=== PATIENT | male | born 1950 | race Caucasian/White ===

== ENCOUNTER 2025-03-31 10:48 | Inpatient (IN) ==
[2025-03-31] MEDS ORDERED: NORCO 7.5/325 MG TAB PO PRN (13:00)
[2025-03-31] MEDS: NORCO 5/325 MG TAB PO PRN (14:24)
[2025-03-31 14:35] VITALS: BMI 35.4
--- NOTE | 2025-03-31 19:33 | PT/OTEVAL ---
PT/OT OBJECTIVES - HISTORY Prescription: PT Consult Diagnosis: Fall with L Hip Fracture s/p ORIF Precautions: PWB LLE, Fall Risk PMH: HTN, Dyslipidemia, AFib, Thyroid Issues, GERD, Prostate Issues, Falls, Chronic Back Pain Prior Level of Function: Independent Other: Per patient and present in room- they reside in a single story home with 3 steps to enter with RHR but no HR on final step into house ( states pt would grab onto the sink inside the door and pull up prior). PLOF: Independent with mobility tasks without a device with exception of long distances where he uses a rollator as needed due to history of back pain. 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 DME: Rollator. History of Present Illness: Mr. Gonzalez is a 75 year old male who was admitted to [facility] on 03/24/2025 after a fall and subsequent L hip pain. Imaging demonstrated L hip comminuted and displaced intertrochanteric fracture and pt underwent surgery on 03/25/2025 for IM nailing. Pt was initially made WBAT; however, on follow up imaging ortho then recommended PWB to LLE. Pt was stabilized medically; however, unable to safely return back home and was transferred to [facility] on the afternoon of 03/31/2025 for swing bed rehab program. - COGNITION Mental Status: Alert, Oriented, Name, Date, Place, Purpose Communication Status: Verbal, Hard of Hearing Ability to Follow Directions: 2 Step Memory Loss: None - PAIN Left Hip Pain Scale: Severe Comments: Pt reports pain is 10/10 - Nursing aware. - BED MOBILITY Rolling: Maximum Scooting: Maximum, x2 - TRANSFERS Supine to Sit: Moderate, x2 Sit to Stand: Moderate, x2 Sit or Stand Pivot: Moderate, x2 Safety (requires cues for:): Weight Bearing Precaution, Hand Placement Precaution - BALANCE Static Sitting: Good Standing: Poor Balance Comment: Poor+ Dynamic Sitting: Fair Standing: Total Assist - NEUROMOTOR/SENSATION Raphael. Lower Ext Sensation: WFL Coordination: WFL Proprioception: WFL - ROM Bilateral LE ROM: WFL Muscle Tone: WFL - STRENGTH Right LE Strength Number: 3 Other comment: 3+/5 Left Hip Strength Number: 2 Left Knee Strength Number: 2 Other comment: 2+/5 Left Ankle Strength Number: 3 - GAIT Pt. ambulates how many feet?: 2 Amount of Assistance Required: Moderate Type of Assistive Device: Rolling Walker Comments: x2- cues for PWB LLE - TREATMENT Date: 03/31/25 Time: 15:00 Treatment Type: Evaluation - TOTAL TREATMENT TIME Total Time: 60 - POST ASSESSMENT Post Assessment Comment: Pt was found supine in bed in room and agreeable to participation in PT services. Pt and provided history and PLOF. Pt reports 10/10 pain to L hip and nursing staff aware but pt reports that he thinks it has to do with ambulance ride. Review of WB precautions with pt verbalizing understanding. Pt max assist for rolling in bed and mod assist x 2 to transition from supine to sitting EOB. Once at EOB, pt able to maintain balance. Pt then completed sit to stand transfers with mod assist x 2 and cues for proper hand placement and facilitation of COM over KAYLA. Pt attempted to ambulate taking 2 steps before fatigue. Pt returned to bed. Review of PT POC and goals with pt- pt states his goal is to get stronger and get home. Pt would benefit from continued PT to address deficits and facilitate highest level of function and safe discharge planning. - EXIT DISPOSITION Exit Position: BED Call light in reach: Yes Bed Alarm On: YES Comments: All needs met. PT/OT ASSESSMENT - PT Problem List: Decreased Bed Mobility, Decreased Transfers, Decreased Gait, Decreased Balance, Decreased Safety, Decreased LE Strength, Other - PT GOALS Short Term Goals Days: 10 Mobility: Pt will perform bed mobility tasks with min assist Transfers: Pt will perform functional transfers with mod assist Gait: Pt will ambulate 50ft with FWW with PWB on LLE and min assist Balance: Pt will increase static standing balance to fair Jail Goals Days: 20 Mobility: Pt will perform bed mobility tasks with mod I Transfers: Pt will perform functional transfers with mod I Gait: Pt will ambulate 100ft with FWW with supervision Balance: Pt will increase static standing balance to good ROM/Strength: Pt will increase RLE strength to 5/5 and LLE strength to 4/5 Others: Pt will ascend/descend 3 stairs with RHR and touch assist - PATIENT GOALS Patient/Family Goals: "Get my strength back so I can go home" Goals Discussed with Patient/Family: Yes Rehabilitation Potential: Good to meet stated goals Justification for Potential: Facilitate highest level of function and safe discharge planning Weakness and Barriers: Pain If yes, explain: LLE - PLAN Suggested Treatment Plan: Bed Mobility Training, Therapeutic Activity, Gait Training, Neuro Re-education, Therapeutic Ex with HEP, Patient Education, Family Education, Other Other comment: Manual Therapy - FREQUENCY AND DURATION PT: 5x per week x 20 days Expected Continuation of Care at Discharge: Determined on Progress Anticipated Equipment Needs: TBD pending progress
[2025-03-31] MEDS ORDERED: COLACE CAP 100 MG PO SCH (21:00)
[2025-03-31] MEDS: CRESTOR TAB 10 MG PO SCH (21:30)
[2025-03-31] MEDS: PROTONIX TAB 40 MG PO SCH (21:30)
[2025-03-31] MEDS: ELIQUIS PO SCH (21:30)
[2025-03-31] MEDS: FLOMAX PO SCH (21:30)
[2025-03-31] MEDS: NORVASC TAB 5 MG PO SCH (21:31)
[2025-03-31] MEDS: COLACE CAP 100 MG PO SCH (21:31)
[2025-04-01] MEDS: MILK OF MAGNESIA PO PRN (00:03)
--- NOTE | 2025-04-01 08:39 | DR.H&P ---
H&P History & Physical for Day of: H&P Date: 03/31/25 Chief Complaint Chief Complaint: Left hip pain. History of Present Illness History of Present Illness: Patient is a 75-year-old male with a past medical history of paroxysmal atrial fibrillation, COPD, hypertension, hyperlipidemia, carotid disease, admitted for swing bed. He is status post left femur ORIF. He is currently resting comfortably in bed. He has no concerns. Will obtain labs. Restart home medications. Order PT/OT. Follow-up recommendations. Otherwise continue with current treatment plan. Continue closely monitor and follow-up labs/imaging. Past Medical History Past Medical History: Hypertension Past Surgical History Surgical History: Appendectomy Family History Family Medical History: Diabetes Mellitus, Cancer and Hypertension Medications Home Medications: Home Medications Medication Instructions Recorded Confirmed Type amlodipine 5 mg tablet 5 mg PO HS 03/27/18 03/31/25 History tamsulosin 0.4 mg capsule 0.4 mg PO HS 03/27/18 History Lactobacillus 40-Bifidobact 1 cap PO DAILY 05/04/24 History 3-S.thermophilus 100 billion cell capsule (Probiotic) apixaban 5 mg tablet (Eliquis) 5 mg PO BID 05/04/24 History cholecalciferol (vitamin D3) 50 50 mcg PO DAILY 03/31/25 History mcg (2,000 unit) capsule (Vitamin D3) cyanocobalamin (vitamin B-12) 1,000 mcg subcut QMONTH 05/04/24 03/31/25 History 1,000 mcg/mL injection solution finasteride 5 mg tablet 5 mg PO QDAY 05/04/24 History levothyroxine 25 mcg tablet 25 mcg PO QDAY 05/04/24 History lisinopril 30 mg tablet 30 mg PO QDAY 05/04/2403/31 History multivitamin with iron-mineral 1 tab PO DAILY 05/04/24 03/31/25 History omega-3 fatty acids-vitamin E 1 cap PO DAILY 05/04/24 03/31/25 History 1,000 mg capsule pantoprazole 40 mg tablet,delayed 40 mg PO HS 05/04/24 03/31/25 History release rosuvastatin 10 mg tablet 10 mg PO QPM 05/04/24 History triamterene 37.5 1 cap PO QDAY 05/04/2403/31 History mg-hydrochlorothiazide 25 mg capsule venlafaxine 150 mg 150 mg PO QDAY 05/04/2403/20 History capsule,extended release 24 hr C 250 mg-E 90 mg-zinc 40 mg-copper 2 cap PO DAILY 03/2003/31/25 History 1 mg-lutein 5 [id number] capsule (PreserVision AREDS 2 CO Q-10) acetaminophen 650 mg tablet 650 mg PO Q6H PRN mild mendy n or 03/31/25 03/31/25 History fever amiodarone 100 mg tablet 100 mg PO QDAY 03/31/2503/20 History clopidogrel 75 mg tablet 75 mg PO QDAY 03/31/2503/31 History docusate sodium 100 mg tablet 100 mg PO BID 03/31/25 1 05/31/24 History glucosamine sulfate 250 1 cap PO DAILY 03/31/2503/20 History mg-chondroitin sulfate A 200 mg capsule hydrocodone 5 mg-acetaminophen 325 1 tab PO Q4-6H PRN moderate pain 03/31/25 03/31/25 History mg tablet hydrocodone 7.5 mg-acetaminophen 1 tab PO Q8H PRN mode rate to severe 03/31/25 03/31/25 History 325 mg tablet melatonin 10 mg tablet 10 mg PO HS PRN 03/31/2505/13 History Allergies Allergies Allergy/AdvReac Type Severity Reaction Status Date / Time Sulfa (Sulfonamide Allergy Unknown Hives; Verified 03/31/25 14:08 Antibiotics) Itching; Rash Review of Systems Constitutional: No Symptoms Reported Eyes: No Symptoms Reported ENT: No Symptoms Reported Respiratory: No Symptoms Reported Cardiovascular: No Symptoms Reported Gastrointestinal: No Symptoms Reported Genitourinary: No Symptoms Reported Musculoskeletal: Leg Pain (left hip/leg) Skin: No Symptoms Reported Neurological: No Symptoms Reported Oriented: Normal Eyes: Normal Ear: Normal Nose: Normal Throat: Normal Respiratory: Clear Throughout Cardiovascular: Normal : Normal Auscultation: Bowel Sounds: Normal Palpation: Normal Tenderness: Normal Skin: Normal Musculoskeletal: Hip (monroe, surgical wound) Psychiatric: Normal Mood Description: Calm and Appropriate Affect: Normal Speech Pattern: Clear and Appropriate Assessment/Plan (1) Status post hip surgery: Status: Acute Plan: PT/OT (2) Physical deconditioning: Status: Acute Review H&P Reviewed: Yes Patient was examined?: Yes
[2025-04-01] MEDS: TAB-A-VITE PO SCH (08:53)
[2025-04-01] MEDS: CORDARONE TAB 200 MG PO SCH (08:53)
[2025-04-01] MEDS: PROSCAR PO SCH (08:53)
[2025-04-01] MEDS: MAXZIDE 37.5/25 MG PO SCH (08:53)
[2025-04-01] MEDS: SYNTHROID 25 mcg TAB PO SCH (08:53)
[2025-04-01] MEDS: VISBIOME PROBIOTIC CAP 112.5 B or equivalent PO SCH (08:59)
[2025-04-01] MEDS: ZESTRIL TAB 10 MG PO SCH (08:59)
[2025-04-01] MEDS: PLAVIX PO SCH (08:59)
[2025-04-01] MEDS: EFFEXOR XR 150 MG CAP 24-HR PO SCH (08:59)
[2025-04-01] MEDS: VITAMIN D3 25 mcg (1,000 UNITS) PO SCH (09:30)
[2025-04-01] MEDS: LOVAZA PO SCH (09:30)
--- NOTE | 2025-04-01 15:17 | PT/OTEVAL ---
PT/OT OBJECTIVES - HISTORY Prescription: OT Consult Diagnosis: Fall with L Hip Fracture s/p ORIF Precautions: PWB LLE, Fall Risk PMH: HTN, Dyslipidemia, AFib, Thyroid Issues, GERD, Prostate Issues, Falls, Chronic Back Pain Prior Level of Function: Independent Other: Per patient and present in room- Lives in a 1 story home with 3 steps to enter with HR on the R going up but no HR on final step into house ( states pt would grab onto the sink inside the door and pull up prior). 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 DME includes a Rollator. History of Present Illness: Mr. Gonzalez is a 75 year old male who was admitted to [facility] after a fall and subsequent L hip pain. Imaging demonstrated L hip comminuted and displaced intertrochanteric fracture and pt underwent surgery on 03/25/2025 for IM nailing. Pt was initially made WBAT; however, on follow up imaging ortho then recommended PWB to LLE. Pt was stabilized medically; however, unable to safely return back home and was transferred to [facility] for swing bed rehab program. - COGNITION Mental Status: Alert, Oriented, Name Communication Status: Verbal Ability to Follow Directions: 2 Step Memory Loss: None - PAIN Left Hip Pain Scale: Severe Comments: Pt reports pain is 10/10 - Nursing aware. - BED MOBILITY Rolling: Maximum Scooting: Maximum, x2 - TRANSFERS Sit to Stand: Minimal Sit to Stand Comment: From elevated surface and max VC for hand placement Safety (requires cues for:): Weight Bearing Precaution, Hand Placement Precaution - ADL'S Lower Body ADL: Maximum Toileting: Maximum Bathing: Maximum - BALANCE Static Sitting: Good Standing: Poor Balance Comment: Poor+ Dynamic Sitting: Fair Standing: Poor - NEUROMOTOR/SENSATION Raphael. Lower Ext Sensation: WFL Coordination: WFL Proprioception: WFL Raphael. Upper Ext Sensation: WFL Coordination: WFL - ROM Bilateral UE ROM: WFL - STRENGTH Right LE Strength Number: 3 Other comment: 3+/5 Left Hip Strength Number: 2 Left Knee Strength Number: 2 Other comment: 2+/5 Left Ankle Strength Number: 3 Bilateral UE Strength Number: 4 Other comment: 4-/5 - TREATMENT Date: 04/01/25 Time: 13:00 Treatment Type: Evaluation - TOTAL TREATMENT TIME Total Time: 45 - POST ASSESSMENT Post Assessment Comment: Pt was seen for skilled OT to assess CLOF. Pt was agreeable to participate and able to provide PLOF and hx. Pt was sitting up in recliner and wanting to get up in back in bed. Pt STS with min A for elevated seat. Pt given max VC for transferring to bed. Pt given time to complete task. Pt verbalized pain in his L hip area. Pt repositioned in the bed with max A x2 and max VC. Pt educated on A with positioning. Requested a shower tomorrow. Pt had all needs met and call light within reach. Pt demonstrates deficits with ADLs and ADL functional mobility. Pt would benefit from skilled OT services to address ADL deficits to facilitate highest level of ADL function needed for safe d/c planning. - EXIT DISPOSITION Exit Position: BED Call light in reach: Yes PT/OT ASSESSMENT - OT Problem List: Decreased Mobility ADL's, Decreased Dressing, Decreased Bathing, Decreased UE Strength - PT GOALS Short Term Goals Days: 10 Mobility: Pt will perform bed mobility tasks with min assist Transfers: Pt will perform functional transfers with mod assist Gait: Pt will ambulate 50ft with FWW with PWB on LLE and min assist Balance: Pt will increase static standing balance to fair Grain Handler Goals Days: 20 Mobility: Pt will perform bed mobility tasks with mod I Transfers: Pt will perform functional transfers with mod I Gait: Pt will ambulate 100ft with FWW with supervision Balance: Pt will increase static standing balance to good ROM/Strength: Pt will increase RLE strength to 5/5 and LLE strength to 4/5 Others: Pt will ascend/descend 3 stairs with RHR and touch assist - OT GOALS Intermediate Goals Days: 20 Mobility for ADL's: Pt will improve functional ADL transfers with set up A and LRAD Dressing: Pt to improve LB dressing to set up A with AE PRN Bathing: Pt to improve overall bathing with set up A and AE PRN Upper Ext. Strength/Use: Pt to improve MMT in BUE by 1 grade Short Term Goals Days: 10 Mobility for ADL's: Pt will improve functional ADL transfers with supv A and LRAD Dressing: Pt to improve LB dressing to supv A with AE PRN Bathing: Pt to improve overall bathing with supv A and AE PRN Upper Ext. Strength/Use: Pt to improve MMT in BUE by 1/2 grade - PATIENT GOALS Patient/Family Goals: "To feel better and go home" Goals Discussed with Patient/Family: Yes Rehabilitation Potential: Good to meet stated goals Justification for Potential: To facilitate highest level of ADL function needed for safe d/c planning. Weakness and Barriers: Pain - PLAN Suggested Treatment Plan: Therapeutic Activity, Self Care Training, Neuro Re- education, Therapeutic Ex with HEP, Patient Education, Family Education - FREQUENCY AND DURATION OT: 5x week x 20 days Expected Continuation of Care at Discharge: Determined on Progress
[2025-04-02 06:03] LABS: MEAN PLATELET VOLUME 7.4 fL (7.4-11.0); RED CELL DISTRIBUTION WIDTH 15.0 % (11.6-16.5)
[2025-04-02 06:21] LABS: COR CA(FOR HYPOALB) 9.9 mg/dL (8.5-10.1); COR NA(FOR HYPERGLY) 137 mmol/L (136-145); CREATININE 1.33 mg/dL (0.70-1.30); eGFR NON BLACK RACES 56 (>60)
--- NOTE | 2025-04-03 09:19 | PCM.PROG ---
Progress Note Progress Note for Day of Date of Exam: 04/02/25 Subjective Subjective: Patient is a 75-year-old male with a past medical history of paroxysmal atrial fibrillation, COPD, hypertension, hyperlipidemia, carotid disease, admitted for swing bed post left femur ORIF. This morning he is resting comfortably in bed. No acute events overnight. He has no concerns. He is working with physical therapy. Labs: WBC 9.5, hemoglobin 10, platelets 402, sodium 137, potassium 5.0, creatinine 1.33, glucose 116. Home medications have been resumed. Continue with PT/OT. Follow-up recommendations. Otherwise continue with current treatment plan. Continue closely monitor and follow-up labs/imaging. Past Medical Family Social History Allergies: Allergies Sulfa (Sulfonamide Antibiotics) Allergy (Unknown, Verified 03/31/25 14:08) Hives; Itching; Rash Review of Systems ROS changes noted: see HPI Vital Signs and I&O's Vital Signs: Vital Signs Temperature 97.6 F Pulse Rate [Left Brachial] 52 Respiratory Rate 20 Respiratory Rate 18 Respiratory Rate 20 Respiratory Rate 18 Respiratory Rate 20 Blood Pressure [Left Arm] 133/64 O2 Sat by Pulse Oximetry 95 Intake and Output: Intake & Output 03/31/25 04/01/25 04/02/25 04/03/25 23:59 23:59 23:59 23:59 Intake Total 850 / 850 1530 / 1530 240 / 240 Balance 850 / 850 1530 / 1530 240 / 240 Physical Exam Oriented: Normal Eyes: Normal Ear: Normal Nose: Normal Throat: Normal Respiratory: Normal Cardiovascular: Normal : Normal Auscultation: Bowel Sounds: Normal Tenderness: Normal Skin: Normal Musculoskeletal: Hip (monroe, surgical wound) Psychiatric: Normal Mood Description: Calm and Appropriate Affect: Normal Speech Pattern: Clear and Appropriate Laboratory and Diagnostics 04/02/25 05:40 04/02/25 05:40 Labs: Laboratory WBC 9.5 X10^3/uL (3.6-10.0) 04/02/25 05:40 RBC 3.02 X10^6/uL (4.7-6.0) L 04/02/25 05:40 Hgb 10.0 g/dL (13.5-18.0) L 04/02/25 05:40 Hct 29.3 % (42.0-54.0) L 04/02/25 05:40 MCV 97.0 fL (80.0-100.0) 04/02/25 05:40 MCH 33.2 pg (27.0-34.0) 04/02/25 05:40 MCHC 34.3 g/dL (33.0-35.0) 04/02/25 05:40 RDW 15.0 % (11.6-16.5) 04/02/25 05:40 Plt Count 402 X10^3/uL (150.0-450.0) 04/02/25 05:40 MPV 7.4 fL (7.4-11.0) 04/02/25 05:40 Neut % (Auto) 76.2 % (42.0-75.0) H 04/02/25 05:40 Lymph % (Auto) 8.8 % (21.0-51.0) L 04/02/25 05:40 [place] % (Auto) 12.1 % (0.0-13.0) 04/02/25 05:40 Eos % (Auto) 2.4 % (0.9-2.9) 04/02/25 05:40 Baso % (Auto) 0.5 % (0.2-1.0) 04/02/25 05:40 Neut # (Auto) 7.2 x10^3/uL (2.2-4.8) H 04/02/25 05:40 Lymph # (Auto) 0.8 X10^3/uL (1.3-2.9) L 04/02/25 05:40 [place] # (Auto) 1.1 x10^3/uL (0.3-0.8) H 04/02/25 05:40 Eos # (Auto) 0.2 x10^3/uL (0.0-0.2) 04/02/25 05:40 Baso # (Auto) 0.1 X10^3/uL (0.0-0.1) 04/02/25 05:40 Absolute Nucleated RBC 0.0 /100WBC 04/02/25 05:40 Sodium 137 mmol/L (136-145) 04/02/25 05:40 Corrected Sodium 137 mmol/L (136-145) 04/02/25 05:40 Potassium 5.0 mmol/L (3.5-5.1) 04/02/25 05:40 Chloride 98 mmol/L (98-107) 04/02/25 05:40 Carbon Dioxide 28.5 mmol/L (21-32) 04/02/25 05:40 BUN 30 mg/dL (7-18) H 04/02/25 05:40 Creatinine 1.33 mg/dL (0.70-1.30) H 04/02/25 05:40 Est GFR (MDRD) Af Amer > 60 (>60) 04/02/25 05:40 Est GFR (MDRD) Non-Af 56 (>60) L 04/02/25 05:40 Glucose 116 mg/dL (65-99) H 04/02/25 05:40 Calcium 9.3 mg/dL (8.5-10.1) 04/02/25 05:40 Corrected Calcium 9.9 mg/dL (8.5-10.1) 04/02/25 05:40 Total Bilirubin 0.80 mg/dL (0.2-1.0) 04/02/25 05:40 AST 27 Units/L (15-37) 04/02/25 05:40 ALT 14 Units/L (12-78) 04/02/25 05:40 Alkaline Phosphatase 82 Units/L (46-116) 04/02/25 05:40 Total Protein 7.8 g/dL (6.4-8.2) 04/02/25 05:40 Albumin 3.3 g/dL (3.4-5.0) L 04/02/25 05:40 Globulin 4.5 g/dL (2.5-4.5) 04/02/25 05:40 Albumin/Globulin Ratio 0.7 Ratio (1.1-2.1) L 04/02/25 05:40 Plan (1) Status post hip surgery: Status: Acute Plan: PT/OT (2) Physical deconditioning: Status: Acute
[2025-04-03] MEDS: MELATONIN PO PRN (21:21)
[2025-04-04] MEDS: MORPHINE SULFATE INJ 2 MG INJ IM ONE (02:13)
[2025-04-04] MEDS: LINZESS PO SCH (08:56)
[2025-04-04] MEDS: BUTT CREAM (COMPOUND) TOP PRN (13:38)
[2025-04-05 05:01] LABS: MEAN PLATELET VOLUME 7.6 fL (7.4-11.0); RED CELL DISTRIBUTION WIDTH 14.9 % (11.6-16.5)
[2025-04-05 05:12] LABS: COR CA(FOR HYPOALB) 9.3 mg/dL (8.5-10.1); COR NA(FOR HYPERGLY) 135.0 mmol/L (136-145); CREATININE 2.18 mg/dL (0.70-1.30); eGFR NON BLACK RACES 31.0 (>60)
--- NOTE | 2025-04-05 09:57 | EKG ---
Test Reason : Bradycardia Blood Pressure : */* mmHG Vent. Rate : 55 BPM Atrial Rate : 87 BPM P-R Int : * ms QRS Dur : 84 ms QT Int : 458 ms P-R-T Axes : * 8 22 degrees QTc Int : 438 ms sinus bradycardia/pacs/junctional rhythm Low voltage QRS Septal infarct (cited on or before 04-MAY-2024) Abnormal ECG When compared with ECG of 30-SEP-2024 10:02, Questionable change in initial forces of Anteroseptal leads Nonspecific T wave abnormality, worse in Lateral leads Confirmed by Gage Carroll MD ([id number]) on 04/05/2025 10:45:41 AM Referred By: Confirmed By: Gage Carroll MD
--- NOTE | 2025-04-05 09:58 | PCM.PROG ---
Progress Note Progress Note for Day of Date of Exam: 04/05/25 Subjective Subjective: Patient seen at bedside, no acute events overnight. He is currently admitted for swing bed for physical and Occupational Therapy. He reports doing well. Labs done this morning showed elevated creatinine and potassium. Patient states his appetite has been okay, he has been eating some meals. He denies any nausea, vomiting or diarrhea. He was having some constipation which has resolved. His heart rate has been noted to be in the 40s. Denies having any shortness of breath or chest pain. Denies any weakness. He has a history of atrial fibrillation. He is currently on amiodarone and Eliquis. He states in the past he has been told that his heart rate has been in the 40s. He does not take a beta-rubia. Labs/imaging reviewed: -WBC 10.4 hemoglobin 10 potassium 5.8 BUN 52 creatinine 2.18 Plan: Order EKG. Add tele. Add Lokelma. Encouraged p.o. intake including fluids. Repeat BMP in the evening. Hold lisinopril. Monitor heart rate. Continue home medications. PT/OT as tolerated. Monitor a.m. labs and imaging. Past Medical Family Social History Allergies: Allergies Sulfa (Sulfonamide Antibiotics) Allergy (Unknown, Verified 03/31/25 14:08) Hives; Itching; Rash Vital Signs and I&O's Vital Signs: Vital Signs Temperature 97.6 F Pulse Rate [Left Brachial] 41 Respiratory Rate 20 Respiratory Rate 20 Respiratory Rate 20 Blood Pressure [Left Arm] 122/58 O2 Sat by Pulse Oximetry 96 Intake and Output: Intake & Output 04/02/25 04/03/25 04/04/25 04/05/25 23:59 23:59 23:59 23:59 Intake Total 1530 / 1530 900 / 900 1550 / 1550 100 / 100 Balance 1530 / 1530 900 / 900 1550 / 1550 100 / 100 Physical Exam Oriented: Normal Eyes: Normal Ear: Normal Nose: Normal Throat: Normal Respiratory: Normal Cardiovascular: Bradycardia Auscultation: Bowel Sounds: Normal Palpation: Normal Tenderness: Normal Skin: Normal Musculoskeletal: Hip (monroe, surgical wound) Psychiatric: Normal Mood Description: Calm and Appropriate Affect: Normal Speech Pattern: Clear and Appropriate Laboratory and Diagnostics 04/05/25 04:28 04/05/25 04:28 Labs: Laboratory WBC 10.4 X10^3/uL (3.6-10.0) H 04/05/25 04:28 RBC 3.06 X10^6/uL (4.7-6.0) L 04/05/25 04:28 Hgb 10.0 g/dL (13.5-18.0) L 04/05/25 04:28 Hct 29.5 % (42.0-54.0) L 04/05/25 04:28 MCV 96.5 fL (80.0-100.0) 04/05/25 04:28 MCH 32.8 pg (27.0-34.0) 04/05/25 04:28 MCHC 33.9 g/dL (33.0-35.0) 04/05/25 04:28 RDW 14.9 % (11.6-16.5) 04/05/25 04:28 Plt Count 490 X10^3/uL (150.0-450.0) H 04/05/25 04:28 MPV 7.6 fL (7.4-11.0) 04/05/25 04:28 Neut % (Auto) 75.7 % (42.0-75.0) H 04/05/25 04:28 Lymph % (Auto) 9.8 % (21.0-51.0) L 04/05/25 04:28 [place] % (Auto) 11.1 % (0.0-13.0) 04/05/25 04:28 Eos % (Auto) 2.7 % (0.9-2.9) 04/05/25 04:28 Baso % (Auto) 0.7 % (0.2-1.0) 04/05/25 04:28 Neut # (Auto) 7.9 x10^3/uL (2.2-4.8) H 04/05/25 04:28 Lymph # (Auto) 1.0 X10^3/uL (1.3-2.9) L 04/05/25 04:28 [place] # (Auto) 1.2 x10^3/uL (0.3-0.8) H 04/05/25 04:28 Eos # (Auto) 0.3 x10^3/uL (0.0-0.2) H 04/05/25 04:28 Baso # (Auto) 0.1 X10^3/uL (0.0-0.1) 04/05/25 04:28 Absolute Nucleated RBC 0.0 /100WBC 04/05/25 04:28 Sodium 134 mmol/L (136-145) L 04/05/25 04:28 Corrected Sodium 135 mmol/L (136-145) L 04/05/25 04:28 Potassium 5.8 mmol/L (3.5-5.1) H 04/05/25 04:28 Chloride 98 mmol/L (98-107) 04/05/25 04:28 Carbon Dioxide 23.6 mmol/L (21-32) 04/05/25 04:28 BUN 52 mg/dL (7-18) H 04/05/25 04:28 Creatinine 2.18 mg/dL (0.70-1.30) H 04/05/25 04:28 Est GFR (MDRD) Af Amer 38 (>60) L 04/05/25 04:28 Est GFR (MDRD) Non-Af 31 (>60) L 04/05/25 04:28 Glucose 129 mg/dL (65-99) H 04/05/25 04:28 Calcium 8.7 mg/dL (8.5-10.1) 04/05/25 04:28 Corrected Calcium 9.3 mg/dL (8.5-10.1) 04/05/25 04:28 Total Bilirubin 0.50 mg/dL (0.2-1.0) 04/05/25 04:28 AST 22 Units/L (15-37) 04/05/25 04:28 ALT 14 Units/L (12-78) 04/05/25 04:28 Alkaline Phosphatase 93 Units/L (46-116) 04/05/25 04:28 Total Protein 7.4 g/dL (6.4-8.2) 04/05/25 04:28 Albumin 3.2 g/dL (3.4-5.0) L 04/05/25 04:28 Globulin 4.2 g/dL (2.5-4.5) 04/05/25 04:28 Albumin/Globulin Ratio 0.8 Ratio (1.1-2.1) L 04/05/25 04:28 Plan (1) Status post hip surgery: Status: Acute Plan: PT/OT (2) Bradycardia: Status: Acute (3) Physical deconditioning: Status: Acute (4) Hypertension: Status: Chronic Qualifiers: Hypertension type: primary hypertension Qualified Code(s): I10 - Essential (primary) hypertension (5) Gastroesophageal reflux disease: Status: Chronic Qualifiers: Esophagitis presence: esophagitis presence not specified Qualified Code(s): K21.9 - Gastro-esophageal reflux disease without esophagitis (6) Atrial fibrillation: Status: Chronic Qualifiers: Atrial fibrillation type: unspecified Qualified Code(s): I48.91 - Unspecified atrial fibrillation
[2025-04-05] MEDS: LOKELMA POWDER PO SCH (10:01)
[2025-04-05 16:14] LABS: COR NA(FOR HYPERGLY) 134.0 mmol/L (136-145); CREATININE 2.56 mg/dL (0.70-1.30); eGFR NON BLACK RACES 26.0 (>60)
[2025-04-05] MEDS ORDERED: KAYEXALATE SUSP PO SCH (17:00)
[2025-04-05] MEDS: NS 1,000 ML IV 1,000 ML IV SCH (18:00)
[2025-04-05] MEDS: KAYEXALATE SUSP PO SCH (18:15)
[2025-04-06 06:00] LABS: MEAN PLATELET VOLUME 7.6 fL (7.4-11.0); RED CELL DISTRIBUTION WIDTH 14.9 % (11.6-16.5)
[2025-04-06 06:22] LABS: COR CA(FOR HYPOALB) 9.2 mg/dL (8.5-10.1); CREATININE 1.70 mg/dL (0.70-1.30); eGFR NON BLACK RACES 42 (>60)
--- NOTE | 2025-04-06 10:19 | PCM.PROG ---
Progress Note Progress Note for Day of Date of Exam: 04/06/25 Subjective Subjective: Patient seen at bedside, no acute events overnight. He is currently admitted for swing bed for physical and Occupational Therapy. He did have elevated potassium and creatinine yesterday. It has improved today. He will be getting monroe out from his hip surgery and have XRs done. HR has been in the mid 40's to 60s. Denies cardiopulmonary symptoms. Labs/imaging reviewed: -WBC 10.7 hemoglobin 10.1 potassium 4.8 BUN 52 creatinine 1.70 Plan: Continue IV fluids. Continue Lokelma. Encouraged p.o. intake including fluids. Hold lisinopril. Monitor heart rate. Continue home medications. PT/OT as tolerated. XRs as per Ortho. Monitor a.m. labs and imaging. Past Medical Family Social History Allergies: Allergies Sulfa (Sulfonamide Antibiotics) Allergy (Unknown, Verified 03/31/25 14:08) Hives; Itching; Rash Vital Signs and I&O's Vital Signs: Vital Signs Temperature 97.1 F Pulse Rate [Left Brachial] 64 Respiratory Rate 19 Respiratory Rate 20 Respiratory Rate 18 Blood Pressure [Left Arm] 149/79 O2 Sat by Pulse Oximetry 97 Intake and Output: Intake & Output 04/03/25 04/04/25 04/05/25 04/06/25 23:59 23:59 23:59 23:59 Intake Total 900 / 900 1550 / 1550 1277 / 1277 677 / 677 Balance 900 / 900 1550 / 1550 1277 / 1277 677 / 677 Physical Exam Oriented: Normal Eyes: Normal Ear: Normal Nose: Normal Throat: Normal Respiratory: Normal Cardiovascular: Bradycardia Auscultation: Bowel Sounds: Normal Palpation: Normal Tenderness: Normal Skin: Normal Musculoskeletal: Hip (omnroe, surgical wound) Psychiatric: Normal Mood Description: Calm and Appropriate Affect: Normal Speech Pattern: Clear and Appropriate Laboratory and Diagnostics 04/06/25 05:12 04/06/25 05:12 Labs: Laboratory WBC 10.7 X10^3/uL (3.6-10.0) H 04/06/25 05:12 RBC 3.06 X10^6/uL (4.7-6.0) L 04/06/25 05:12 Hgb 10.1 g/dL (13.5-18.0) L 04/06/25 05:12 Hct 29.5 % (42.0-54.0) L 04/06/25 05:12 MCV 96.2 fL (80.0-100.0) 04/06/25 05:12 MCH 33.0 pg (27.0-34.0) 04/06/25 05:12 MCHC 34.3 g/dL (33.0-35.0) 04/06/25 05:12 RDW 14.9 % (11.6-16.5) 04/06/25 05:12 Plt Count 518 X10^3/uL (150.0-450.0) H 04/06/25 05:12 MPV 7.6 fL (7.4-11.0) 04/06/25 05:12 Neut % (Auto) 77.0 % (42.0-75.0) H 04/06/25 05:12 Lymph % (Auto) 10.0 % (21.0-51.0) L 04/06/25 05:12 Carson % (Auto) 9.6 % (0.0-13.0) 04/06/25 05:12 Eos % (Auto) 2.8 % (0.9-2.9) 04/06/25 05:12 Baso % (Auto) 0.6 % (0.2-1.0) 04/06/25 05:12 Neut # (Auto) 8.2 x10^3/uL (2.2-4.8) H 04/06/25 05:12 Lymph # (Auto) 1.1 X10^3/uL (1.3-2.9) L 04/06/25 05:12 Carson # (Auto) 1.0 x10^3/uL (0.3-0.8) H 04/06/25 05:12 Eos # (Auto) 0.3 x10^3/uL (0.0-0.2) H 04/06/25 05:12 Baso # (Auto) 0.1 X10^3/uL (0.0-0.1) 04/06/25 05:12 Absolute Nucleated RBC 0.1 /100WBC 04/06/25 05:12 Sodium 135 mmol/L (136-145) L 04/06/25 05:12 Corrected Sodium TNP 11/18/25 05:12 Potassium 4.8 mmol/L (3.5-5.1) 04/06/25 05:12 Chloride 98 mmol/L (98-107) 04/06/25 05:12 Carbon Dioxide 25.2 mmol/L (21-32) 04/06/25 05:12 BUN 46 mg/dL (7-18) H 04/06/25 05:12 Creatinine 1.70 mg/dL (0.70-1.30) H 04/06/25 05:12 Est GFR (MDRD) Af Amer 51 (>60) L 04/06/25 05:12 Est GFR (MDRD) Non-Af 42 (>60) L 04/06/25 05:12 Glucose 109 mg/dL (65-99) H 04/06/25 05:12 Calcium 8.6 mg/dL (8.5-10.1) 04/06/25 05:12 Corrected Calcium 9.2 mg/dL (8.5-10.1) 04/06/25 05:12 Magnesium 2.7 mg/dL (2.0-2.9) 04/06/25 05:12 Total Bilirubin 0.60 mg/dL (0.2-1.0) 04/06/25 05:12 AST 25 Units/L (15-37) 04/06/25 05:12 ALT 15 Units/L (12-78) 04/06/25 05:12 Alkaline Phosphatase 103 Units/L (46-116) 04/06/25 05:12 Total Protein 7.8 g/dL (6.4-8.2) 04/06/25 05:12 Albumin 3.3 g/dL (3.4-5.0) L 04/06/25 05:12 Globulin 4.5 g/dL (2.5-4.5) 04/06/25 05:12 Albumin/Globulin Ratio 0.7 Ratio (1.1-2.1) L 04/06/25 05:12 Plan (1) Status post hip surgery: Status: Acute Plan: PT/OT (2) Bradycardia: Status: Chronic (3) Physical deconditioning: Status: Acute (4) Hypertension: Status: Chronic Qualifiers: Hypertension type: primary hypertension Qualified Code(s): I10 - Essential (primary) hypertension (5) Gastroesophageal reflux disease: Status: Chronic Qualifiers: Esophagitis presence: esophagitis presence not specified Qualified Code(s): K21.9 - Gastro-esophageal reflux disease without esophagitis (6) Atrial fibrillation: Status: Chronic Qualifiers: Atrial fibrillation type: unspecified Qualified Code(s): I48.91 - Unspecified atrial fibrillation
--- NOTE | 2025-04-06 12:12 | RAD ---
EXAM: HIP, LEFT; FEMUR, LEFT HISTORY: POST OP ORIF LEFT FEMUR; HTN, SPINE, ORTHO COMPARISON: None. TECHNIQUE: Left hip, 3 views; left femur, 2 views FINDINGS: Mildly displaced proximal left femur intertrochanteric fracture. Left femur intramedullary delgado, femoral neck screw, and distal interlocking screws are intact. Moderate left hip and knee osteoarthritis. No significant knee effusion. Scattered arterial calcifications. IMPRESSION: LEFT HIP. LEFT FEMUR. Mildly displaced proximal left femur intertrochanteric fracture with fixation hardware in place. THIS IS AN ELECTRONICALLY VERIFIED FINAL REPORT 04/06/2025 12:07 PM - Electronically signed by Jesse Box MD
[2025-04-07] MEDS: TYLENOL 325 MG TAB PO PRN (03:55)
[2025-04-07 06:06] LABS: MEAN PLATELET VOLUME 7.3 fL (7.4-11.0); RED CELL DISTRIBUTION WIDTH 15.0 % (11.6-16.5)
[2025-04-07 06:20] LABS: COR CA(FOR HYPOALB) 9.5 mg/dL (8.5-10.1); COR NA(FOR HYPERGLY) 138 mmol/L (136-145); CREATININE 1.39 mg/dL (0.70-1.30); eGFR NON BLACK RACES 53 (>60)
[2025-04-08 08:29] VITALS: BP 130/59; PULSE 68; TEMP 97.5; O2SAT 97
[2025-04-08 11:03] VITALS: RESP 20
[2025-04-30] MEDS ORDERED: VITAMIN B-12 INJ IM SCH (09:00)
== END 2025-04-08 13:20 | DRG 560 ==
LOC: MED/SURG 12:34
PROVIDERS: ADMIT Internal Medicine; ATTEND Internal Medicine
DX: K21.9 Gastro-esophageal reflux disease without esophagitis; J44.9 Chronic obstructive pulmonary disease, unspecified; R53.1 Weakness; Z98.890 Other specified postprocedural states; Z51.89 Encounter for other specified aftercare; R00.1 Bradycardia, unspecified; Y92.9 Unspecified place or not applicable; I48.91 Unspecified atrial fibrillation; E87.5 Hyperkalemia; D64.89 Other specified anemias; I10 Essential (primary) hypertension; E87.1 Hypo-osmolality and hyponatremia; I25.10 Atherosclerotic heart disease of native coronary artery without angina pectoris; R94.4 Abnormal results of kidney function studies; S72.002D Fracture of unspecified part of neck of left femur, subsequent encounter for closed fracture with routine healing; R94.31 Abnormal electrocardiogram [ECG] [EKG]; W18.39XD Other fall on same level, subsequent encounter; E78.5 Hyperlipidemia, unspecified; Z79.01 Long term (current) use of anticoagulants; E83.41 Hypermagnesemia